=== PATIENT | male | born 1990 | race Two or more races ===

== ENCOUNTER 2017-02-18 11:51 | Emergency (ER) | payer OTHER ==
[~2017-02-18] VITALS: Ht 180.3 cm; Wt 90.7 kg
[2017-02-18] MEDS ORDERED: ASPIRIN 81 MG TABLET CHEW PO ONE (13:00)
[2017-02-18 13:07] LABS: HEMOGLOBIN 15.5 g/dL (13.7-18.0)
[2017-02-18 13:16] LABS: ASPARTATE AMINO TRANSFERASE 18 U/L (15-37); BLOOD UREA NITROGEN 8 mg/dL (7-18)
[2017-02-18 13:21] LABS: IS PT STATUS REG ER OR PRE ER? YES
[2017-02-18 14:35] VITALS: BP 126/70
== END 2017-02-18 14:38 | disposition home or self-care (01) ==
LOC: ED 14:00
DX: M94.0 Chondrocostal junction syndrome [Tietze] (principal)
CPT/HCPCS: 36415; 71010; 80053; 84484; 85025; 93005